=== PATIENT | male | born 1990 | race African-American/Black ===

== ENCOUNTER 2025-06-04 20:37 | Emergency (ER) | payer MEDICAID ==
[~2025-06-04] VITALS: Ht 182.9 cm; Wt 63.5 kg
[2025-06-04] MEDS ORDERED: KETOROLAC TROMETHAMINE 30 MG INJ ONE (21:27)
[2025-06-04] MEDS: KETOROLAC TROMETHAMINE 30 MG INJ IM ONE (21:30)
[2025-06-04 21:58] VITALS: BP 118/65
[2025-06-04] MEDS ORDERED: CYCL10TA24 PO (22:22)
[2025-06-04] MEDS ORDERED: NAPR-1194 PO (22:22)
[2025-06-04] MEDS: CYCLOBENZAPRINE HCL 10 MG TABLET PO ONE (22:35)
[2025-06-04] MEDS ORDERED: CYCLOBENZAPRINE HCL 10 MG TABLET ONE (22:35)
[2025-06-04] MEDS: HYDROCODONE/APAP 5-325MG TABLET PO ONE (22:35)
[2025-06-04] MEDS ORDERED: HYDROCODONE/APAP 5-325MG TABLET ONE (22:35)
[2025-06-04 22:55] VITALS: BP 118/62; TEMP 98.1; O2SAT 98
== END 2025-06-04 22:50 | disposition home or self-care (01) ==
LOC: ER 20:47
DX: S29.012A Strain of muscle and tendon of back wall of thorax, initial encounter (principal); S16.1XXA Strain of muscle, fascia and tendon at neck level, initial encounter; V89.2XXA Person injured in unspecified motor-vehicle accident, traffic, initial encounter; Y93.89 Activity, other specified; Y92.410 Unspecified street and highway as the place of occurrence of the external cause; Y99.9 Unspecified external cause status
CPT/HCPCS: 99283; 96372; J1885; A4606; A4663